=== PATIENT | female | born 1950 ===

== ENCOUNTER 2018-04-17 14:22 | Emergency (ER) | payer SELFPAY ==
[2018-04-17 14:31] VITALS: RESP 20; TEMP 97.9; O2SAT 100
--- NOTE | 2018-04-17 14:39 | C.PDOC ---
History Of Present Illness 67 y/o female comes in to the emergency department complaining of elevated blood pressure and lightheadedness earlier today. Patient reports she had an argument at home with her landlord and she became anxious and had a panic attack. Patient denies chest pain or fever. She states the last time she took her blood pressure medications was yesterday. Time Seen by Provider: 04/17/18 14:27 Chief Complaint (Nursing): Anxiety History Per: Patient History/Exam Limitations: no limitations Onset/Duration Of Symptoms: Hrs Current Symptoms Are (Timing): Still Present Past Medical History Reviewed: Historical Data, Nursing Documentation, Vital Signs Vital Signs: Last Vital Signs Temp 97.9 F 04/17/18 14:30 Pulse 82 04/17/18 14:30 Resp 20 04/17/18 14:30 BP 212/90 H 04/17/18 14:30 Pulse Ox 100 04/17/18 14:30 - Medical History PMH: Anxiety, Depression, HTN Comment Only: Bipolar Disorder (?) Surgical History: No Surg Hx Family History: States: No Known Family Hx - Social History Hx Tobacco Use: No Hx Alcohol Use: No Hx Substance Use: No - Immunization History Hx Tetanus Toxoid Vaccination: No Hx Influenza Vaccination: No Hx Pneumococcal Vaccination: No Review Of Systems Except As Marked, All Systems Reviewed And Found Negative. Constitutional: Negative for: Fever, Chills Cardiovascular: Positive for: Light Headedness. Negative for: Chest Pain Respiratory: Negative for: Shortness of Breath Psych: Positive for: Anxiety Physical Exam - Physical Exam Appears: Non-toxic, Other (Anxious) Skin: Warm, Dry Head: Atraumatic, Normacephalic Eye(s): bilateral: Normal Inspection Oral Mucosa: Moist Neck: Supple Cardiovascular: Rhythm Regular, No Murmur Respiratory: Normal Breath Sounds, No Rales, No Rhonchi, No Wheezing Extremity: Bilateral: Atraumatic, Normal Color And Temperature, Normal ROM Neurological/Psych: Oriented x3, Normal Speech ED Course And Treatment ECG: Interpreted By Me, Viewed By Me ECG Rhythm: Sinus Rhythm Rate From EC O2 Sat by Pulse Oximetry: 100 (RA) Pulse Ox Interpretation: Normal Medical Decision Making Medical Decision Making: Plan: --EKG --Catapres 0.1 mg PO --Xanax 0.5 mg PO Progress: Patient has improved. Does not have any chest pain or headache. BP is 180/60. Disposition Counseled Patient/Family Regarding: Studies Performed, Diagnosis, Need For Followup, Rx Given - Disposition Referrals: [facility] [Outside] Disposition Time: 15:31 Condition: STABLE Prescriptions: Lisinopril [Zestril] 10 mg PO DAILY #30 tablet Instructions: High Blood Pressure in Adults Forms: [facility] (Georgian) Print Language: GRENADIAN - POA Present On Arrival: None - Clinical Impression Clinical Impression: Anxiety, Hypertension - Scribe Statement The provider has reviewed the documentation as recorded by the Bernardino Chan Provider Attestation: All medical record entries made by the Bernardino were at my direction and personally dictated by me. I have reviewed the chart and agree that the record accurately reflects my personal performance of the history, physical exam, medical decision making, and the department course for this patient. I have also personally directed, reviewed, and agree with the discharge instructions and disposition.
[2018-04-17 15:08] VITALS: PULSE 60
[2018-04-17 15:42] VITALS: BP 183/64
--- NOTE | 2018-04-19 14:22 | CARD ---
APPROVED REPORT Date of service: 04/17/2018 EKG Measurement Heart [id number] <Conclusion> Normal sinus rhythm Normal ECG
== END 2018-04-17 15:43 | disposition home or self-care (01) ==
LOC: C.ER 14:22
DX: I10 Essential (primary) hypertension (principal); F41.9 Anxiety disorder, unspecified